=== PATIENT | female | born 1965 | race Caucasian/White ===

== ENCOUNTER 2019-09-13 19:07 | Emergency (ER) | payer SELFPAY ==
[~2019-09-13] VITALS: Ht 167.6 cm; Wt 62.0 kg
[2019-09-13 19:11] VITALS: BP 134/68
== END 2019-09-13 20:49 | disposition left against medical advice (07) ==
LOC: ER 19:20
DX: R10.84 Generalized abdominal pain (principal); R11.2 Nausea with vomiting, unspecified; Z53.21 Procedure and treatment not carried out due to patient leaving prior to being seen by health care provider

== ENCOUNTER 2024-09-24 11:54 | Emergency (ER) | payer OTHER ==
[~2024-09-24] VITALS: Ht 154.9 cm; Wt 46.0 kg
[2024-09-24 12:06] VITALS: O2SAT 99
[2024-09-24 12:54] LABS: BASOPHILS % 0.4 % (0.0-2.0); EOSINOPHILS % 0.4 % (0.0-5.0); HEMATOCRIT. 30.2 % (36.0-48.0); HEMOGLOBIN. 9.4 g/dL (12.0-16.0); LYMPHOCYTES % 27.5 % (20.0-50.0); MEAN PLATELET VOLUME 8.7 fl (7.4-10.4); MONOCYTES % 13.2 % (2.0-8.0); NEUTROPHILS % 58.5 % (40.0-76.0); PLATELET 127 x1000/uL (130-400); RED BLOOD CELL COUNT 4.58 mill/uL (4.2-5.4); RED CELL DISTRIBUTION WIDTH 23.0 % (11.6-14.6)
[2024-09-24 13:00] LABS: ADD RBC MORPHOLOGY YES
[2024-09-24] MEDS: MECLIZINE 25MG TABLET PO ONE (13:15)
[2024-09-24 13:18] LABS: CREATININE 1.3 mg/dL (0.6-1.0); UREA NITROGEN BLOOD 9 mg/dL (9-23)
[2024-09-24 13:20] LABS: ASPARTATE AMINOTRANSFERASE 68 IU/L (<34); BILIRUBIN DIRECT 0.5 mg/dL (<=3.0); BILIRUBIN TOTAL 1.3 mg/dL (0.1-1.0)
[2024-09-24 13:21] LABS: PROTEIN TOTAL 8.7 g/dL (6.0-8.3)
[2024-09-24 13:35] LABS: PLATELET ESTIMATE SLIGHTLY DECREASED
[2024-09-24 13:47] LABS: TROPONIN I HIGH SENSITIVITY 54 ng/L (3.0-34)
[2024-09-24] MEDS: KCL 10MEQ/50ML PREMIX 50 ML IV SCH (14:46)
[2024-09-24] MEDS: POTASSIUM CHLORIDE 20MEQ TABLET SR PO ONE (14:46)
[2024-09-24] MEDS: SODIUM CHLORIDE 0.9% 1,000 ML IV ONE (14:46)
[2024-09-24 16:51] VITALS: BP 136/80; PULSE 86; RESP 12; TEMP 36.8; O2SAT 100
== END 2024-09-24 17:05 | disposition short-term general hospital (02) ==
LOC: ER 11:54
DX: I21.4 Non-ST elevation (NSTEMI) myocardial infarction (principal); N17.9 Acute kidney failure, unspecified; E87.6 Hypokalemia; I10 Essential (primary) hypertension; R51.9 Headache, unspecified; E11.9 Type 2 diabetes mellitus without complications; D64.9 Anemia, unspecified
CPT/HCPCS: 99285; 96365; 70450; 71045; 96361; 80076; 80048; 83690; 85025; 84484; 36415; 93005; J8597; J3480; J7030